=== PATIENT | male | born 1975 | race Caucasian/White ===

== ENCOUNTER 2022-06-24 16:25 | Emergency (ER) | payer OTHER ==
[~2022-06-24] VITALS: Ht 193 cm; Wt 97.0 kg
[~2022-06-24 16:25] MED LIST: ATOR20TA66 PO; METO-333 PO; METO50TA7 PO; MULT-35 PO; OMG1KC PO; PANT40TA52 PO; RIVA20TA2 PO; UBID1CAP53 PO
--- NOTE | 2022-06-24 16:39 | ED Chest Pain ---
General Chief Complaint: Chest Pain Stated Complaint: CHEST PAINS | Nursing Triage Note: PT AMB TO RM 6 PT CO OF CHEST PAIN, RATED 4/10. STARTED APPROX 1 HOUR AGO. STATES HAS BEEN HAVING INTERMITTENT C/P FOR A COUPLE YEARS. PT HAS HX OF A -FIB AND GERD Source: patient Exam Limitations: no limitations (HANNAH SHELLEY APRN) History of Present Illness Date Seen by Provider: Jun 24, 2022 Time Seen by Provider: 16:35 Initial Comments Patient is a 47-year-old male who presents to the emergency department for evaluation of chest pain. He states he intermittently has the substernal squeezing sensation that typically last 3 to 4 seconds. States he has been having these for 2 to 3 years intermittently. He states they have seemed to be more intense over the last few months. He states his last episode of pain was approximately 1 hour ago. Denies any pain at this time. Endorses a history of A. fib for which he takes Xarelto and metoprolol. Denies any aggravating or alleviating factors in regards to the pain. He states he has not noticed a pattern to the onset as it seems random. States the pain is always short-lived. 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 He states he just wanted to be evaluated to make sure it was nothing heart related. (HANNAH SHELLEY APRN) Allergies and Home Medications Allergies Coded Allergies: No Known Drug Allergies (Unverified , 05/02/16) Patient Home Medication List Home Medication List Reviewed: Yes (HANNAH SHELLEY APRN) Atorvastatin Calcium (Atorvastatin Calcium) 20 Mg Tablet, 20 MG PO HS, (Reported) Entered as Reported by: QUETA MADDOX on 05/02/16 1320 Metoprolol Succinate (Metoprolol Succinate) 50 Mg Tab.er.24h, 50 MG PO DAILY Prescribed by: Luisito LIU on 05/03/16 1058 Multivitamin (Daily Multiple Vitamin) 1 Each Tablet, 1 TAB PO DAILY, (Reported) Entered as Reported by: QUETA MADDOX on 05/02/16 1332 [place] 3 Polyunsat Fatty Acids (Fish Oil 1,000 mg Capsule) 1,000 Mg Cap, 2,000 MG PO BID, (Reported) Entered as Reported by: QUETA MADDOX on 05/02/16 1332 Pantoprazole Sodium (Pantoprazole Sodium) 40 Mg Tablet.dr, 40 MG PO DAILY PRN for HEARTBURN, (Reported) Entered as Reported by: QUETA MADDOX on 05/02/16 1320 Rivaroxaban (Xarelto Tablet) 20 Mg Tablet, 20 MG PO DAILY@1700 Prescribed by: Luisito LIU on 05/03/16 1059 Ubidecarenone/Vit E Acetate (Co Q-10 100 mg Softgel) 1 Each Capsule, 100 MG PO HS, (Reported) Entered as Reported by: QUETA MADDOX on 05/02/16 1332 Review of Systems Review of Systems Constitutional: no symptoms reported EENTM: No Symptoms Reported Respiratory: No Symptoms Reported Cardiovascular: See HPI, Chest Pain Gastrointestinal: No Symptoms Reported Genitourinary: No Symptoms Reported Musculoskeletal: no symptoms reported Skin: no symptoms reported Psychiatric/Neurological: No Symptoms Reported Endocrine: No Symptoms Reported Hematologic/Lymphatic: No Symptoms Reported (HANNAH SHELLEY APRN) Past Mmyyrjp-Tejrmt-Uykwit Hx Patient Social History Tobacco Use?: No Substance use?: No Alcohol Use?: No Pt feels they are or have been: No (HANNAH SHELLEY APRN) Immunizations Up To Date Tetanus Booster (TDap): Less than 5yrs Influenza Vaccine Up-to-Date: No; Not Current First/Initial COVID19 Vaccinat: Y Second COVID19 Vaccination Juice: Y (HANNAH SHELLEY APRN) Seasonal Allergies Seasonal Allergies: No (HANNAH SHELLEY APRN) Past Medical History Surgery/Hospitalization HX: A-FIB, GERD, Reproductive Disorders: No Sexually Transmitted Disease: No HIV/AIDS: No Adverse Reaction/Blood Tranf: No (HANNAH SHELLEY APRN) Family Medical History FH: breast cancer 19 MOTHER, Onset:s - 40 ( at 37 years old) Thrombotic thrombocytopenic purpura (TTP) G8 BROTHER, Onset: - 41 (kidney transplant) Physical Exam Vital Signs Vital Signs - First Documented 06/24/22 16:30 Temp 35.8 Pulse 76 Resp 17 B/P (MAP) 149/88 (108) Pulse Ox 100 (MILLER FREGOSO MD) Vital Signs Capillary Refill : Less Than 3 Seconds (HANNAH SHELLEY APRN) Height, Weight, BMI Height: 6'4.00" Weight: 247lbs. 1.0oz. 112.609136ty; 26.00 BMI Method: General Appearance: No Apparent Distress, WD/WN HEENT: PERRL/EOMI, TMs Normal, Normal ENT Inspection, Pharynx Normal Neck: Full Range of Motion, Normal Inspection, Non Tender, Supple Respiratory: Chest Non Tender, Lungs Clear, Normal Breath Sounds, No Accessory Muscle Use, No Respiratory Distress Cardiovascular: Regular Rate, Rhythm Gastrointestinal: Non Tender, Soft Neurologic/Psychiatric: Alert, Oriented x3, No Motor/Sensory Deficits, Normal Mood/Affect Skin: Normal Color, Warm/Dry (HANNAH SHELLEY APRN) Progress/Results/Core Measures Results/Orders Lab Results Laboratory Tests Test 06/24/22 16:30 Range/Units White Blood Count 7.0 4.3-11.0 10^3/uL Red Blood Count 4.15 L 4.30-5.52 10^6/uL Hemoglobin 13.2 L 13.3-17.7 g/dL Hematocrit 38 L 40-54 % Mean Corpuscular Volume 92 80-99 fL Mean Corpuscular Hemoglobin 32 25-34 pg Mean Corpuscular Hemoglobin Concent 35 32-36 g/dL Red Cell Distribution Width 12.0 10.0-14.5 % Platelet Count 183 130-400 10^3/uL Mean Platelet Volume 10.0 9.0-12.2 fL Immature Granulocyte % (Auto) 0 % Neutrophils (%) (Auto) 46 42-75 % Lymphocytes (%) (Auto) 44 12-44 % Monocytes (%) (Auto) 8 0-12 % Eosinophils (%) (Auto) 2 0-10 % Basophils (%) (Auto) 1 0-10 % Neutrophils # (Auto) 3.2 1.8-7.8 10^3/uL Lymphocytes # (Auto) 3.0 1.0-4.0 10^3/uL Monocytes # (Auto) 0.6 0.0-1.0 10^3/uL Eosinophils # (Auto) 0.1 0.0-0.3 10^3/uL Basophils # (Auto) 0.0 0.0-0.1 10^3/uL Immature Granulocyte # (Auto) 0.0 0.0-0.1 10^3/uL Prothrombin Time 17.8 H 12.2-14.7 SEC INR Comment 1.4 0.8-1.4 Activated Partial Thromboplast Time 36 H 24-35 SEC Sodium Level 136 135-145 MMOL/L Potassium Level 3.1 L 3.6-5.0 MMOL/L Chloride Level 105 98-107 MMOL/L Carbon Dioxide Level 20 L 21-32 MMOL/L Anion Gap 11 5-14 MMOL/L Blood Urea Nitrogen 11 7-18 MG/DL Creatinine 0.92 0.60-1.30 MG/DL Estimat Glomerular Filtration Rate 104 BUN/Creatinine Ratio 12 Glucose Level 151 H 70-105 MG/DL Calcium Level 9.3 8.5-10.1 MG/DL Corrected Calcium 9.0 8.5-10.1 MG/DL Magnesium Level 1.9 1.6-2.4 MG/DL Total Bilirubin 0.4 0.1-1.0 MG/DL Aspartate Amino Transf (AST/SGOT) 23 5-34 U/L Alanine Aminotransferase (ALT/SGPT) 33 0-55 U/L Alkaline Phosphatase 52 40-136 U/L Myoglobin 32.3 10.0-92.0 NG/ML Troponin I < 0.028 <0.028 NG/ML Total Protein 7.2 6.4-8.2 GM/DL Albumin 4.4 3.2-4.5 GM/DL (MILLER FREGOSO MD) My Orders Orders - MILLER FREGOSO MD Ekg Tracing (06/24/22 16:28) (MILLER FREGOSO MD) Vital Signs/I&O 06/24/22 06/24/22 16:30 17:41 Temp 35.8 Pulse 76 70 Resp 17 16 B/P (MAP) 149/88 (108) 126/78 Pulse Ox 100 100 (MILLER FREGOSO MD) Blood Pressure Mean: 108 Progress Progress Note : Progress Note Patient is nontoxic and well-hydrated on exam. No adventitious lung sounds or increased work of breathing noted. Vital signs are reassuring. Patient was ambulatory to the room without issue. Patient denies any recent exertional intolerance, diaphoresis, radiating chest pain, shortness of air, dependent edema. Denies any recent changes in medications. States he does not smoke. No pain at time of my exam. Chest pain protocol initiated. Orders placed for CBC, CMP, coagulation studies, troponin, chest x-ray, and EKG. CBC largely unremarkable other than some mild anemia. CMP is notable for mild hypokalemia but there are no significant derangements appreciated. Coagulation studies reveal mildly elevated PTT but nothing concerning. Troponin is negative. EKG without acute ischemic change or arrhythmia. Patient is currently in sinus rhythm. Chest x-ray is acutely negative on my wet read. Formal radiology report agrees that no acute findings are noted. Patient has remained pain-free while in the emergency department. Very low suspicion for ACS at this time. Pain is atypical and chronic. No indication for repeat troponin as the pain has been intermittent for 2-3 years. Discussed importance of follow-up with his electric power machine operator for further evaluation. Return precautions for urgent symptomology discussed. Patient verbalized understanding. (HANNAH SHELLEY APRN) EKG : EKG Time: 16:32 Rate: 78 Rhythm: Normal Sinus Intervals: Normal ECG Impression: Normal (HANNAH SHELLEY APRN) Departure Impression Primary Impression: Atypical chest pain Disposition: 01 HOME, SELF-CARE Condition: Stable Departure-Patient Inst. Decision time for Depature: 17:35 (HANNAH SHELLEY APRN) Ref[place]: [facility] [place] Primary Care Physician Patient Instructions: Chest Pain, Adult ED ATTENDING PHYSICIAN NOTE: I was physically present as attending physician in the emergency department during the care of this patient, but I was not directly involved in the decision making or delivery of care for this patient. (MILLER FREGOSO MD) HANNAH SHELLEY APRN Jun 24, 2022 16:39 MILLER FREGOSO MD Jun 25, 2022 06:18
[2022-06-24 16:49] LABS: BASOPHILS % (AUTO) 1 % (0-10); EOSINOPHILS # (AUTO) 0.1 10^3/uL (0.0-0.3); EOSINOPHILS % (AUTO) 2 % (0-10); HEMATOCRIT 38 % (40-54); HEMOGLOBIN 13.2 g/dL (13.3-17.7); LYMPHOCYTES % (AUTO) 44 % (12-44); MEAN CORPUSCULAR HEMOGLOBIN 32 pg (25-34); MEAN CORPUSCULAR HGB CONC 35 g/dL (32-36); MEAN CORPUSCULAR VOLUME 92 fL (80-99); MONOCYTES # (AUTO) 0.6 10^3/uL (0.0-1.0); MONOCYTES % (AUTO) 8 % (0-12); NEUTROPHILS # (AUTO) 3.2 10^3/uL (1.8-7.8); NEUTROPHILS % (AUTO) 46 % (42-75); PLATELET COUNT 183 10^3/uL (130-400)
--- NOTE | 2022-06-24 16:58 | Diagnostic Imaging Report ---
INDICATION: 47-year-old male with chest pain. COMPARISON: 05/03/2016. FINDINGS: Single view chest shows normal heart, pulmonary vasculature, pleura and diaphragms with no focal opacity. Soft tissues and bony thorax are unremarkable. IMPRESSION: No acute cardiopulmonary change. Dictated by: Dictated on workstation # [id number]
[2022-06-24 17:00] LABS: ALBUMIN 4.4 GM/DL (3.2-4.5); POTASSIUM 3.1 MMOL/L (3.6-5.0)
[2022-06-24 17:01] LABS: CALCIUM 9.3 MG/DL (8.5-10.1)
[2022-06-24 17:02] LABS: INR 1.4 (0.8-1.4); PROTHROMBIN TIME PATIENT 17.8 SEC (12.2-14.7)
[2022-06-24 17:03] LABS: TOTAL PROTEIN 7.2 GM/DL (6.4-8.2)
[2022-06-24 17:04] LABS: BILIRUBIN,TOTAL 0.4 MG/DL (0.1-1.0)
[2022-06-24 17:06] LABS: CREATININE SERUM 0.92 MG/DL (0.60-1.30)
[2022-06-24 17:09] LABS: MAGNESIUM 1.9 MG/DL (1.6-2.4)
[2022-06-24 17:41] VITALS: BP 126/78
== END 2022-06-24 17:43 | disposition home or self-care (01) ==
LOC: EDUNIT# 16:25 → ER 16:28
DX: R07.2 Precordial pain (principal); D64.9 Anemia, unspecified; E87.6 Hypokalemia; R79.1 Abnormal coagulation profile; I48.91 Unspecified atrial fibrillation; Z79.01 Long term (current) use of anticoagulants
CPT/HCPCS: 36415; 71045; 80053; 83735; 83874; 84484; 85025; 85610; 85730; 93005; 93041